=== PATIENT | male | born 1995 | race Caucasian/White ===

== ENCOUNTER 2017-06-28 07:20 | Inpatient (IN) | payer OTHER ==
[~2017-06-28] VITALS: Ht 172.7 cm; Wt 56.8 kg
[2017-06-28] MEDS ORDERED: BACT800T5 PO (07:47)
[2017-06-28] MEDS ORDERED: KEFL500C17 PO (07:47)
[2017-06-28 08:20] LABS: BASO # 0.1 10^3/uL (0.0-0.2); BASO % 0.3 % (0.0-1.0); EOS % 0.1 % (0.0-3.0); IMMATURE GRANULOCYTE % 0.3 % (0-0); LYMPH # 1.5 10^3/uL (1.5-6.5); LYMPH % 8.6 % (24.0-44.0); MEAN CORPUSCULAR HEMOGLOBIN 30.1 pg (27.0-33.0); MEAN CORPUSCULAR VOLUME 88.7 fl (80.0-96.0); MONO # 1.7 10^3/uL (0.0-0.8); MONO % 9.6 % (0.0-5.0); NEUTROPHILS # 14.3 10^3/uL (1.8-7.7); NEUTROPHILS % 81.1 % (36.0-66.0); PLATELET COUNT, AUTOMATED 220 10^3/uL (150-450); RED CELL DISTRIBUTION WIDTH 12.4 % (11.5-14.5); WHITE BLOOD COUNT 17.7 10^3/uL (4.0-10.0)
[2017-06-28] MEDS ORDERED: MORPHINE 4 MG/ML 1ML SYRINGE IV ONE (08:30)
[2017-06-28] MEDS ORDERED: NS 1,000 ML IV ONE (08:30)
[2017-06-28] MEDS ORDERED: CLINDAMYCIN 900 MG in APPROPRIATE DILUENT 1 EA IV ONE (08:30)
[2017-06-28] MEDS ORDERED: ONDANSETRON 4MG/2ML VIAL (J2405) IV ONE (08:30)
[2017-06-28 08:43] LABS: ANION GAP 7 MEQ/L (8-16); BLOOD UREA NITROGEN 10 MG/DL (7-18); CALCIUM LEVEL 9.6 MG/DL (8.5-10.1); CARBON DIOXIDE LEVEL 26 MEQ/L (21-32); CHLORIDE LEVEL 103 MEQ/L (98-107); CREATININE FOR GFR 1.06 MG/DL (0.70-1.30); GLUCOSE, FASTING 98 MG/DL (70-105); POTASSIUM SERUM 4.4 MEQ/L (3.5-5.1); SODIUM LEVEL 136 MEQ/L (136-145)
[2017-06-28 09:03] LABS: ERYTHROCYTE SEDIMENTATION RATE 11 mm/hr (0-15)
[2017-06-28] MEDS ORDERED: CLINDAMYCIN 600 MG in APPROPRIATE DILUENT 1 EA IV SCH (10:00)
--- NOTE | 2017-06-28 10:55 | REP ---
Clinical: Pain. Cellulitis. Technique: AP, lateral, bilateral oblique views of the left hand. Findings: No acute fracture dislocation. The osseous structures and joint spaces are intact and normal. No periosteal reaction is appreciated. No subcutaneous emphysema or radiodense foreign body. Lateral view suggests dorsal swelling at the level of the metacarpal bones. Impression: Moderate dorsal swelling. Signed by Aurelio Matt MD 06/28/2017 10:46 A
[2017-06-28] MEDS ORDERED: VANCOMYCIN HCL 1,000 MG, VIAL MATE ADAPTER 1 EACH in D5W 250 ML IV ONE (11:00)
[2017-06-28] MEDS ORDERED: KETOROLAC 30 MG/ML VIAL (J1885) IV ONE (11:00)
--- NOTE | 2017-06-28 11:03 | HPE ---
DATE OF ADMISSION: 06/28/2017 PRIMARY CARE PROVIDER: Emersonvaldo Hines CHIEF COMPLAINT: Left hand third metacarpophalangeal joint pain and swelling. HISTORY OF PRESENT ILLNESS: 22-year-old male with a history of smoking, quit one month ago, presented to the emergency room with a 3 to 5 day history of left third metacarpophalangeal joint pain and swelling, which has worsened over the past few days. The patient was seen at [facility] and was given Bactrim and cephalexin with no improvement. He has had subjective fevers and chills at home prompting him to present to the emergency room for further evaluation and treatment. The patient denies any recent trauma. It was initially a painful bump, which he opened up and tried to sterilize at home, which has now worsened. Hospitalist service was called for admission. He otherwise denies any recent upper respiratory infections, cough, shortness of breath, palpitations, lightheadedness, chest pain, pressure or tightness, nausea, vomiting, diarrhea, dysuria, urgency, frequency. He complains of some numbness in the fingers with swelling of the entire hand over the past two days, subjective fevers, chills. No nausea or vomiting. No prior episodes of this. The patient had not taken any nonsteroidal antiinflammatory drugs as an outpatient. PAST MEDICAL HISTORY: None. PAST SURGICAL HISTORY: [place] teeth removal. ALLERGIES: No known drug allergies. HOME MEDICATIONS: - Bactrim and cephalexin SOCIAL HISTORY: Previously smoked one pack per day, quit one month ago. 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 FAMILY HISTORY: Mother with heart issues at age 46, hypertension. Father alive and well in his 40s. REVIEW OF SYSTEMS: As per history of present illness. 12-point system otherwise negative. PHYSICAL EXAMINATION: VITAL SIGNS: Temperature 98.5, pulse 103, respiratory rate 18, blood pressure 130/75, 97% on room air. GENERAL: The patient is awake, alert, oriented times three. Answering questions appropriately. No respiratory distress, icterus or jaundice. No tracheal deviation. No use of respiratory accessory muscles. Anicteric. Moist mucous membranes. No cervical lymphadenopathy or pharyngeal erythema. No tonsillar exudates. LUNGS: Clear to auscultation. No wheezing, rales or rhonchi. HEART: S1, S2. Sinus rhythm. ABDOMEN: Soft, nontender, nondistended. Positive bowel sounds. EXTREMITIES: The patient has left metacarpophalangeal joint swelling, erythema, and tenderness. The patient has a 0.5 cm open ulcer, not openly draining, scabbed over on the left metacarpophalangeal joint. The rest of the digits are swollen and painful. The patient has limited range of motion at the metacarpophalangeal joint. LAB DATA: White count 17.7, hemoglobin 15, hematocrit 46, platelet count 220. 81% neutrophils. Sodium 136, potassium 4.4, chloride 103, bicarbonate 26, BUN 10, creatinine 1.06 , glucose of 98, lactic acid of 1.2, calcium of 9.6. Microbiology: One blood culture is pending. ASSESSMENT AND PLAN: This is a 22-year-old male with no significant past medical history aside from wisdom teeth removal, presents to the emergency room with 3 to 5 day history of a bump on the third metacarpophalangeal joint, which turned into cellulitis over the past 3 to 5 days, treated with Bactrim and cephalexin as an outpatient in no improvement and subjective fevers and chills. IMPRESSION: Sepsis secondary to left third metacarpophalangeal joint wound infection and left hand cellulitis. Orthopedic surgery has been consulted for incision and drainage. Obtain wound culture and sensitivity and gram stain. Currently on clindamycin, which we will continue. Check for methicillin resistant Staphylococcus aureus (MRSA) and give one dose of vancomycin. IV fluids, Toradol. Elevate the extremity and warm compresses. Deep vein thrombosis (DVT) prophylaxis with Lovenox. MTDD
[2017-06-28] MEDS: NS 1,000 ML IV SCH ×2 (11:11→19:54)
[2017-06-28 13:35] VITALS: BP 127/59
[2017-06-28] MEDS ORDERED: NORCO, ANEXSIA 5/325MG TABLET (HYDROcodone/ACETAMINOPHEN) PO PRN (14:15)
[2017-06-28] MEDS ORDERED: MORPHINE 2 MG/ML 1ML SYRINGE IV ONE (16:30)
[2017-06-28] MEDS: CLINDAMYCIN 600 MG in APPROPRIATE DILUENT 1 EA IV SCH (16:54)
[2017-06-28] MEDS: KETOROLAC 30 MG/ML VIAL (J1885) IV SCH ×2 (16:54→23:46)
[2017-06-28] MEDS ORDERED: LIDOCAINE 1% SDV 5 ML VIAL As Ordered ONE (17:41)
[2017-06-29] VITALS: BP 115/55
[2017-06-29] MEDS: CLINDAMYCIN 600 MG in APPROPRIATE DILUENT 1 EA IV SCH ×3 (00:07→16:39)
[2017-06-29 04:00] VITALS: BP 120/51
[2017-06-29] MEDS: KETOROLAC 30 MG/ML VIAL (J1885) IV SCH ×4 (05:55→22:43)
[2017-06-29] MEDS: NS 1,000 ML IV SCH (05:55)
[2017-06-29] MEDS ORDERED: LevoFLOXacin 500 MG TABLET PO SCH (06:00)
[2017-06-29 06:50] LABS: BASO # 0.1 10^3/uL (0.0-0.2); BASO % 0.5 % (0.0-1.0); EOS # 0.1 10^3/uL (0.0-0.50); EOS % 0.9 % (0.0-3.0); IMMATURE GRANULOCYTE % 0.4 % (0-0); LYMPH # 1.6 10^3/uL (1.5-6.5); LYMPH % 15.9 % (24.0-44.0); MEAN CORPUSCULAR HEMOGLOBIN 29.8 pg (27.0-33.0); MEAN CORPUSCULAR HGB CONC 33.2 g/dl (32.0-36.5); MEAN CORPUSCULAR VOLUME 89.7 fl (80.0-96.0); MONO # 1.2 10^3/uL (0.0-0.8); MONO % 11.9 % (0.0-5.0); NEUTROPHILS # 7.2 10^3/uL (1.8-7.7); NEUTROPHILS % 70.4 % (36.0-66.0); PLATELET COUNT, AUTOMATED 166 10^3/uL (150-450); RED CELL DISTRIBUTION WIDTH 12.5 % (11.5-14.5); WHITE BLOOD COUNT 10.2 10^3/uL (4.0-10.0)
[2017-06-29 07:32] LABS: ANION GAP 6 MEQ/L (8-16); BLOOD UREA NITROGEN 11 MG/DL (7-18); CALCIUM LEVEL 8.6 MG/DL (8.5-10.1); CARBON DIOXIDE LEVEL 26 MEQ/L (21-32); CHLORIDE LEVEL 109 MEQ/L (98-107); CREATININE FOR GFR 0.88 MG/DL (0.70-1.30); GLUCOSE, FASTING 91 MG/DL (70-105); POTASSIUM SERUM 4.7 MEQ/L (3.5-5.1); SODIUM LEVEL 141 MEQ/L (136-145)
[2017-06-29 08:00] VITALS: BP 120/57
[2017-06-29] MEDS ORDERED: MORPHINE 2 MG/ML 1ML SYRINGE IV ONE (08:20)
[2017-06-29] MEDS: MORPHINE 2 MG/ML 1ML SYRINGE IV PRN (08:29)
--- NOTE | 2017-06-29 10:46 | CR ---
DATE OF CONSULTATION: 06/28/2017 INDICATION: Left hand abscess. 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 He explained that he picked at it with his fingers and a few days later, it started to become more swollen and infected and painful. He came to the emergency room on 06/28/2017 complaining of a low grade fever and increasing pain. He was noted to have a white count of 17 and elevated C-reactive protein and an area of fluctuance over the third MCP joint. To be clear, the patient is an active duty soldier. No history of any IV drug use. PAST MEDICAL HISTORY: Denies. PAST SURGICAL HISTORY: [place] teeth. ALLERGIES: No known drug allergies. HOME MEDICATIONS: None. SOCIAL HISTORY: Patient is left hand dominant. He does not smoke, abuse alcohol or elicit drugs. He is an active duty soldier. No history of other hand infections. REVIEW OF SYSTEMS: Patient denies neurologic, cardiac, pulmonary, abdominal symptoms. Musculoskeletal symptoms as above. PHYSICAL EXAM: Reveals a well appearing male in no distress. Alert and oriented times three. Neurologic: Appropriate mood and affect. Cardiovascular: 2+ radial pulse with a regular rate. Pulmonary: Regular nonlabored breathing. Skin: In the left hand reveals a 1.5 cm diameter area of swelling and induration and erythema. There is a central area of skin necrosis about 2 mm. That area is tender to palpation. He has pain with active extension of his fingers but with assistance can do so. There is no tenderness in the finger. No swelling in the finger. No swelling on the palmar aspect. No pain with wrist range of motion. ASSESSMENT AND PLAN: Zacarias is a 22-year-old male with a left hand abscess. I have recommended incision and drainage. It is reasonable to do this at bedside. Please see the separate operative report for that. Following the incision and drainage (I and D) of the hand abscess, I did place a wick and the plan will be for him to get daily wick changes for approximately 3-4 days to allow the wound to drain and heal by secondary intention. Antibiotics will be per the pediatric hospitalist. He does not need any orthopedic surgery followup. He could certainly [place] In terms of work restrictions, I recommend that he not do any running for the next week and no use of the left hand including lifting, pushing, pulling for 2 weeks to allow this to fully heal up.
--- NOTE | 2017-06-29 11:17 | RO ---
DATE OF PROCEDURE: 06/28/2017 PREPROCEDURE DIAGNOSIS: Left hand abscess. POSTPROCEDURE DIAGNOSIS: Left hand abscess. PROCEDURE: Incision and drainage left hand abscess. SURGEON: Jostin Cruz MD SUSTAINABLE DESIGN COORDINATOR: ANESTHESIA: SPECIMEN: Purulent fluid culture times one. COMPLICATIONS: None. INDICATIONS: Zacarias is a 22-year-old male with a left hand abscess. He had failed outpatient antiobiotic treatment. For full details, please see my dictated history and physical (H and P). I explained the risks and benefits of incision and drainage of his hand abscess with him, and written informed consent was obtained. DESCRIPTION OF PROCEDURE: Patient was identified, and the left hand was marked with a pen. Time-out performed per hospital protocol. Skin was cleaned with alcohol, and then I injected 5 mL of 1% lidocaine without epinephrine using a 22-gauge needle. After adequate analgesia, the hand was sterilely prepped with Betadine. I used an 11 blade to make just under 1 cm longitudinal incision through the area with some skin necrosis. Immediately encountered some purulent fluid which was swabbed and sent for culture. A hemostat clamp was then used to bluntly spread through the abscess, and approximately 7-8 mL of frankly purulent fluid was expressed from that wound. All loculations were broken up with the hemostat clamp. There was an area of some necrotic fat which was removed with the hemostat as well. After ensuring all purulent fluid had been removed, I then irrigated the wound with 500 mL of normal saline. An Iodoform wick was then placed in the wound and was packed. A bulky, sterile gauze bandage was placed over this. Patient tolerated the procedure well. Plan will be for him to be on IV antibiotics and then switched to oral per the hospitalist's discretion. He will need once daily wick changes for 3-4 days.
[2017-06-29] MEDS ORDERED: BACITAB PO (11:31)
[2017-06-29] MEDS ORDERED: CLIN150C14 PO (11:31)
[2017-06-29] MEDS ORDERED: TYLE325T5 PO (11:33)
--- NOTE | 2017-06-29 12:34 | IPN ---
DATE: 06/29/2017 The patient seen and examined at the bedside. The chart has been reviewed. T-max of 100.3 yesterday. The patient underwent incision and drainage of the left third MCP joint by Dr. Cruz. Wound culture is unavailable as yet. The patient had a log grade temperature of 100.3 overnight. He still complains of numbness, decrease in swelling at the left third MCP joint. No other issues per nursing overnight. T-max 100.3. Current temperature 98.2. Pulse 60. Respiratory rate 17. Blood pressure 120/57. 98% on room air. Generally, the patient is awake, alert and oriented times three, answering questions appropriately. Lungs are clear to auscultation. No wheezing, rales or rhonchi. Heart: S1, S2. Sinus rhythm. Abdomen: Soft. Nontender. Nondistended. Positive bowel sounds. No rebound or guarding. No hepatosplenomegaly. Extremities: The patient has a right third MCP joint that has decrease in the edema, decrease in erythema. No purulent drainage. Currently bandaged status post irrigation and debridement (I and D). The patient has good perfusion of all the digits. [place] in color. No cyanosis. Warm to touch. White count 10.2, [id number], hematocrit 36, platelet count 166. Sodium 141, potassium 4.7, chloride 109, bicarbonate 26, BUN 11, creatinine 0.88, glucose 91. MICROBIOLOGY: Wound culture is still pending and methicillin-resistant Staphylococcus aureus (MRSA) screen pending. Blood culture no growth after 24 hours. IMAGING STUDY: X-ray of the left hand shows significant dorsal swelling, moderate in amount, no acute fracture and no subcutaneous emphysema, radiodense foreign body. ASSESSMENT AND PLAN: This is a 22-year-old male with left third MCP joint swelling, edema, and pain admitted for cellulitis and abscess status post incision and drainage. No past medical history. CURRENT ISSUES: 1. Left third MCP joint abscess/cellulitis. Currently on IV clindamycin with improvement. Patient has had low grade temperature of 100.3. Continued on clindamycin. MRSA screen is still pending. He did receive one dose of vancomycin yesterday. Potential discharge in the morning and outpatient followup with Dr. Cruz, orthopedic surgery, as well as, primary care physician. Continue with elevation and compresses for symptomatic relief and Toradol as needed for pain.
[2017-06-29 14:00] VITALS: BP 123/60
[2017-06-29 20:00] VITALS: BP 136/71
[2017-06-30] MEDS: CLINDAMYCIN 600 MG in APPROPRIATE DILUENT 1 EA IV SCH ×2 (00:28→09:06)
[2017-06-30 04:00] VITALS: BP 127/56
[2017-06-30] MEDS: KETOROLAC 30 MG/ML VIAL (J1885) IV SCH ×2 (04:42→11:00)
[2017-06-30 06:38] LABS: BASO % 0.4 % (0.0-1.0); EOS # 0.1 10^3/uL (0.0-0.50); EOS % 1.8 % (0.0-3.0); IMMATURE GRANULOCYTE % 0.3 % (0-0); LYMPH # 1.6 10^3/uL (1.5-6.5); LYMPH % 22.3 % (24.0-44.0); MEAN CORPUSCULAR HEMOGLOBIN 30.1 pg (27.0-33.0); MEAN CORPUSCULAR HGB CONC 33.6 g/dl (32.0-36.5); MEAN CORPUSCULAR VOLUME 89.7 fl (80.0-96.0); MONO # 0.9 10^3/uL (0.0-0.8); NEUTROPHILS # 4.5 10^3/uL (1.8-7.7); NEUTROPHILS % 62.2 % (36.0-66.0); PLATELET COUNT, AUTOMATED 183 10^3/uL (150-450); RED CELL DISTRIBUTION WIDTH 12.3 % (11.5-14.5); WHITE BLOOD COUNT 7.2 10^3/uL (4.0-10.0)
[2017-06-30] MEDS ORDERED: OXYC1TAB23 PO (06:51)
[2017-06-30 07:01] LABS: ANION GAP 6 MEQ/L (8-16); BLOOD UREA NITROGEN 13 MG/DL (7-18); CARBON DIOXIDE LEVEL 27 MEQ/L (21-32); CHLORIDE LEVEL 108 MEQ/L (98-107); CREATININE FOR GFR 1.05 MG/DL (0.70-1.30); GLUCOSE, FASTING 98 MG/DL (70-105); POTASSIUM SERUM 4.4 MEQ/L (3.5-5.1); SODIUM LEVEL 141 MEQ/L (136-145)
[2017-06-30 08:00] VITALS: BP 103/55
[2017-06-30] MEDS ORDERED: INFLUENZA QUADRIVALENT PF VACCINE 0.5ML SYRINGE (90686) IM ONE (09:00)
[2017-06-30] MEDS: MORPHINE 2 MG/ML 1ML SYRINGE IV PRN (10:09)
--- NOTE | 2017-06-30 15:37 | DSES ---
DATE OF ADMISSION: 06/28/2017 DATE OF DISCHARGE: 06/30/2017 PRIMARY CARE PROVIDER: Ki Hines. CONSULTANTS: Orthopedic surgery, Dr. Jostin Cruz. PRIMARY DISCHARGE DIAGNOSES: 1. Left metacarpophalangeal (MCP) abscess and cellulitis. 2. Methicillin-sensitive Staphylococcus aureus. PROCEDURES DURING THIS ADMISSION: Incision and drainage left MCP hand abscess. DISCHARGE MEDICATIONS: - clindamycin 450 mg by mouth every 6 hours for 10 days - lactobacillus one tablet by mouth twice a day for 10 days - Percocet one tablet every 4 hours as needed for pain, maximum daily dose of six, dispense 30 tablets, no refills - Tylenol 650 every 4 hours as needed for pain or fever Wound care per orthopedic surgery. Daily wick changes and gauze dressing. ACTIVITY: Patient is to be non-weightbearing on the left hand until cleared by orthopedic surgery. Patient may resume light duty with no weightbearing of the left hand until cleared by orthopedic surgery. 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 Patient tried to sterilize this at home after opening it up, but it has worsened. He was treated with Bactrim and Keflex by [facility] with worsening symptoms. Patient has had ongoing fevers and found to have a white count of 17.7 and was admitted via the emergency room to [facility] for intravenous antibiotics and incision and drainage. X-ray of the left hand shows moderate dorsal swelling. Dr. Cruz, orthopedic surgery, was consulted for incision and drainage. Wound cultures grew out Staphylococcus aureus which is sensitive to clindamycin, resistant to penicillin, but methicillin-sensitive Staphylococcus aureus. Patient had a low grade temperature of 100.3 and defervesced and so white count became normal at 7.2. He did receive one dose of vancomycin for possible methicillin-resistant Staphylococcus aureus (MRSA). MRSA was negative. Two sets of blood cultures were negative. Patient is discharged in stable condition. Followup with Dr. Cruz as outpatient. LABORATORY DATA ON DISCHARGE: White count 7.2, hemoglobin 12, hematocrit 36, platelet count 183, sodium 141, potassium 4.4, chloride 108, bicarbonate 27, BUN 13, creatinine 1.05. Wound culture 06/28/2017, methicillin-sensitive Staphylococus aureus, sensitive to oxacillin, clindamycin, Bactrim, and tetracycline. MRSA is negative. Two sets of blood cultures, 06/28/2017, are both negative. IMAGING STUDIES: X-ray of the hand, moderate dorsal swelling left hand, 06/28/2017. TIME SPENT ON DISCHARGE: 30 minutes.
== END 2017-06-30 11:40 | disposition home or self-care (01) | DRG 580 ==
LOC: M ED 07:20 → M ED INP 09:54 → M PED 13:32
PROVIDERS: ADMIT General Practice; ATTEND General Practice
PROC: 0J9K0ZZ Drainage of Left Hand Subcutaneous Tissue and Fascia, Open Approach (ICD-10-PCS; principal; 2017-06-28)
DX: L02.512 Cutaneous abscess of left hand (principal); L03.114 Cellulitis of left upper limb; Z87.891 Personal history of nicotine dependence; B95.61 Methicillin susceptible Staphylococcus aureus infection as the cause of diseases classified elsewhere